=== PATIENT | female | born 1970 ===

== ENCOUNTER → 2021-09-11 08:10 | Outpatient (CLI) | payer BC, SELFPAY ==
[2021-09-11 20:13] LABS: Follicle Stimulating Hormone 17.5 mIU/mL; Vitamin D 25 Hydroxy (D3) 70.8 ng/mL (30.0-100.0)
[2021-09-11 20:35] LABS: Ferritin 31 ng/mL (11-264)
[2021-09-11 21:06] LABS: Folate > 20.0 ng/mL (2.76-20.0); Vitamin B12 577 pg/mL (239-931)
[2021-09-14 23:36] LABS: Zinc 84 ug/dL (44-115)
[2021-09-17 13:24] LABS: Estradiol, Sensitive 99.3 pg/mL (.)
[2021-09-18 21:58] LABS: Nicotinamide 17.3 ng/mL (5.2-72.1); Nicotinic Acid <5.0 ng/mL (0.0-5.0)
[2021-09-19 08:04] LABS: Vitamin B2, Whole Blood 207 ug/L (137-370)
[2021-09-20 13:19] LABS: Free Progesterone 2.2 ng/dL (.); Progesterone, Serum 73 ng/dL (.)
== END ==
PROVIDERS: Visit Provider Specialist
DX: E55.9 Vitamin D deficiency, unspecified (principal); E61.1 Iron deficiency; K21.9 Gastro-esophageal reflux disease without esophagitis; N95.1 Menopausal and female climacteric states; R19.8 Other specified symptoms and signs involving the digestive system and abdomen; T78.40XA Allergy, unspecified, initial encounter; Z71.89 Other specified counseling
CPT/HCPCS: 82306; 82525; 82607; 82670; 82728; 82746; 83001; 84144; 84207; 84270; 84591; 84630; 84999